=== PATIENT | male | born 1945 | race Caucasian/White ===

== ENCOUNTER 2024-01-29 10:11 | Outpatient (AMB) | payer OTHER, SELFPAY ==
[2024-01-29 09:57] VITALS: BP 153/70; PULSE 82; RESP 12; O2SAT 97; BMI 23.3
--- NOTE | 2024-01-29 09:57 | A.OFFPC_ITS ---
Vital Signs 01/29/24 09:57 Height 5 ft 9 in Weight 157 lb 9 oz BMI 23.3 BP 153/70 H Blood Pressure Location Rt brachial Position Sitting Respiration 12 Pulse 82 Pulse Source Pulse Oximeter Pulse Oximetry (%) 97 Oxygen Delivery Method Room Air Intake Visit Reasons: Follow up from different clinic Intake Note: Patient is here to establish care with [facility]. Patient would like refills on medications and a referral to to Dr. Gabriel, [facility]. 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 Operator Required: No Accompanied by: Spouse Allergies No Known Allergies Allergy (Verified 01/29/24 10:00) Medication List - Last Reconciled 01/29/24 by Delilah Keita MD aspirin (Adult Low Dose Aspirin) 81 mg PO DAILY atorvastatin 80 mg PO DAILY hydrocortisone 2.5% appl topical metoprolol succinate ER 12.5 mg PO DAILY multivitamin 1 tab PO DAILY Tobacco use date assessed: 01/29/24 Fall risk assessment: No Falls in past year Last assessed Fall Risk: 01/29/24 Dental Screening Dental Screen Date: 01/29/24 Did you have a dental visit in the last 12 months?: Yes Did you have a dental problem in the last 6 months where you did not have access to dental care?: No Was dental information given to patient?: Patient has dentist HPI HPI Comments History of Present Illness Details The patient is a 77-year-old male with a past medical history of CAD, NSTEMI, history of anemia presenting for follow-up CV: Follows with Mary. Had NSTEMI 2019 with SANA to proximal and distal RCA. On atorvastatin 80, aspirin 81, metoprolol 12.5 daily. No chest pain, shortness of breath, lower extremity edema Musculoskeletal: With having neck pain and a previous visit. Arthritis and muscle spasm seen on x-ray. It did dissipate. Has intermittent flares of sciatica/low back pain. Heme/Onc: Had significant anemia noted in 2020 and underwent upper endoscopy. Erosions were noted in the stomach however no active bleeding was seen. Colonoscopy (03/21/2021) did report 2 polyps that were later consistent with normal mucosa. Recommended 5 year follow-up given family history of colon cancer. ROS CONSTITUTIONAL: Denies weight loss, fever and chills. HEENT: Denies changes in vision and hearing. RESPIRATORY: Denies SOB and cough. CV: Denies palpitations and CP GI: Denies abdominal pain, nausea, vomiting and diarrhea. : Denies dysuria and urinary frequency. MSK: Denies new myalgia and joint pain. SKIN: Denies rash and pruritus. NEUROLOGICAL: Denies headache PSYCHIATRIC: Denies recent changes in mood. PHYSICAL EXAM: GENERAL: Alert and oriented x 3. NAD EYES: EOMI. Anicteric. HENT: Moist mucous membranes. No scleral icterus. No cervical lymphadenopathy. LUNGS: Clear to auscultation bilaterally. CARDIOVASCULAR: Regular rate and rhythm. No murmur. No JVD. ABDOMEN: Soft, non-tender +bs EXTREMITIES: No edema. Non-tender. SKIN: No rashes or lesions. Warm. NEUROLOGIC: No focal neurological deficits. CN II-XII grossly intact PSYCHIATRIC: Cooperative. Appropriate mood and affect PENDING SALE TO [facility] Medical History History of common carotid artery stent placement Neck pain CAD (coronary artery disease) History of ST elevation myocardial infarction (STEMI) Hypertension Hyperlipidemia Surgical History History of colonoscopy History of esophagogastroduodenoscopy (EGD) Family History Mother Heart disease Dementia Father Heart disease Hypertension Heart attack Social History Household Members: Spouse Housing: House Are you a primary gericare aide teacher to a significant other at home: No Do you presently have visiting nurse or other home services: No Alcohol intake: current Alcohol intake frequency: a few times a month Alcohol type: wine Patient Tobacco Use Status: Former Tobacco user Tobacco use type: Cigarette e-Cigarette/Vaping Use: Never Used Use of substances other than those prescribed or required for medical reasons: No Have you been hit, kicked, punched, or otherwise hurt by someone within the past year? If so, by whom?: No Do you feel safe in your current relationship?: Yes Is there a partner from a previous relationship who is making you feel unsafe now?: No Are you made to feel afraid or neglected: No service: Yes ([employer]) Current occupational status: retired Current occupational exposures/hazards: No Cognitive needs: No Hearing needs: No Vision needs: No Questionnaire PHQ-9 Over the last 2 weeks, how often have you been bothered by any of the following problems? 1. Little interest or pleasure in doing things: not at all 2. Feeling down, depressed, or hopeless: not at all 3. Trouble falling or staying asleep, or sleeping too much: not at all 4. Feeling tired or having little energy: not at all 5. Poor appetite or overeating: not at all 6. Feeling bad about yourself - or that you are a failure or have let yourself or your family down: not at all 7. Trouble concentrating on things, such as reading the newspaper or watching television: not at all 8. Moving or speaking so slowly that other people could have noticed. Or the opposite - being so fidgety or restless that you have been moving around a lot more than usual: not at all 9. Thoughts that you would be better off or of hurting yourself in some way: not at all Total score: 0 Depression Screening Interpretation: Negative (neg) Depression Screening Done: Yes 80435 - PHQ-9 Billing: Yes Source: Developed by Drs. Vinay Ferrer, Kiki Pascual, Justino Mena and colleagues, with an educational janet from [employer]. Thrive Questionnaire Date Thrive assessed: 01/29/24 I am a: Patient What is your living situation today?: I have a steady place to live Within the past 12 months, did the food you bought not last and you didn't have the money to get more?: Never true Within the past 12 months, did you worry whether your food would run out before you got money to buy more?: Never true Do you have trouble paying for medicines?: No Do you have trouble getting transportation to medical appointments?: No Do you have trouble paying your heating and electricity bill?: No Do you have trouble taking care of your child, family member or friend?: No Do you have trouble with day-to-day activities such as bathing, preparing meals, shopping, managing finances, etc.?: No Are you currently unemployed and looking for a job?: No Are you interested in more education?: No Please select the resources that you would like help with: None Currently or been in a relationship where the following occur: No concerns reported THRIVE Score: 0 AUDIT C Alcohol Use Questionnaire (AUDIT-C) 1. How often do you have a drink containing alcohol?: 2-3 times a week 2. How many drinks containing alcohol do you have on a typical day when you are drinking?: 1 or 2 3. How often do you have six or more drinks on one occasion?: Never Total Score: 3 KOTA-7 AMB Questionnaire KOTA-7 Date KOTA - 7 assessed: 01/29/24 Feeling nervous, anxious, or on edge: 0 = Not at all Not being able to stop or control worryin = Not at all Worrying too much about different things: 0 = Not at all Trouble relaxin = Not at all Being so restless that it is hard to sit still: 0 = Not at all Becoming easily annoyed or irritable: 0 = Not at all Feeling afraid as if something awful might happen: 0 = Not at all Total KOTA-7 score (0-4 normal; 5-9 mild; 10-14 moderate; 15-21 severe): 0 Source: Developed by Drs. Vinay Ferrer, Kiki Pascual, Justino Mena and colleagues, with an educational janet from [employer]. KOTA-7 Assessment Billing KOTA-7 Assessment Tool: KOTA-7 Assessment 98844 Physical exam (Primary Care) Vital Signs: Last Vital Signs Pulse 82 01/29/24 09:57 Resp 12 01/29/24 09:57 BP 153/70 H 01/29/24 09:57 Pulse Ox 97 01/29/24 09:57 Oxygen Delivery Method Room Air 01/29/24 09:57 BMI result Body Mass Index 23.3 Tobacco/Smoking Status: Tobacco use Status Tobacco use date assessed 01/29/24 01/29/24 10:09 Patient Tobacco Use Status Former Tobacco user 01/29/24 10:09 Tobacco use type Cigarette 01/29/24 10:09 e-Cigarette/Vaping Use Never Used 01/29/24 10:09 PHQ-9: PHQ-9 Score PHQ-9: Total score 0 02/03/24 11:33 Depression Screening Interpretation: Negative (neg) Thrive Assessment: Date of Thrive Assessment Date Thrive assessed 01/29/24 01/29/24 11:33 Currently or been in a relationship where the following occur: No concerns reported Assessment and Plan Assessment & Plan (1) CAD (coronary artery disease): Code(s): I25.10 - Atherosclerotic heart disease of [place] coronary artery without angina pectoris Qualifiers: Associated angina: without angina Coronary Disease-Associated Artery/Lesion type: [place] artery [place] vs. transplanted heart: [place] heart Qualified Code(s): I25.10 - Atherosclerotic heart disease of [place] coronary artery without angina pectoris Plan: Insurance referral for cardiology BP borderline. Reports controlled at home. Low salt diet. Normal BMI (2) Hypertension: Code(s): I10 - Essential (primary) hypertension Qualifiers: Hypertension type: primary hypertension Qualified Code(s): I10 - Essential (primary) hypertension Plan: see above. Labs ordered. continue current medications pending cardiology visit Orders: Orders Complete Blood Count Auto Diff 01/29/24 E78.5 - Hyperlipidemia, unspecified, I10 - Essential (primary) hypertension, I25.10 - Atherosclerotic heart disease of [place] coronary artery without angina pectoris, I25.2 - Old myocardial infarction Lipid Panel 01/29/24 E78.5 - Hyperlipidemia, unspecified, I10 - Essential (primary) hypertension, I25.10 - Atherosclerotic heart disease of [place] coronary artery without angina pectoris, I25.2 - Old myocardial infarction Comprehensive Met. Panel 01/29/24 E78.5 - Hyperlipidemia, unspecified, I10 - Essential (primary) hypertension, I25.10 - Atherosclerotic heart disease of [place] coronary artery without angina pectoris, I25.2 - Old myocardial infarction IRON PROFILE 01/29/24 E78.5 - Hyperlipidemia, unspecified, I10 - Essential (primary) hypertension, I25.10 - Atherosclerotic heart disease of [place] coronary artery without angina pectoris, I25.2 - Old myocardial infarction Referrals Cardiology Referral I25.10 - Atherosclerotic heart disease of [place] coronary artery without angina pectoris Medications: New sildenafil (Viagra) administer 30 minutes to 4 hours before activity 50 mg PO DAILY PRN 90 tabs 3RF sexual activity metoprolol succinate ER 12.5 mg (1/2 x 25 mg) PO DAILY 90 tabs 3RF atorvastatin 80 mg PO DAILY 90 tabs 3RF hydrocortisone 2.5% 1 appl topical DAILY 30 grams 3RF Coding Level of Care Code Est Pt Level 4 (74415) Complex EM visit Add On G2211 Diagnoses Coronary artery disease involving [place] coronary artery of [place] heart without angina pectoris I25.10 Associated angina: without angina Coronary Disease-Associated Artery/Lesion type: [place] artery [place] vs. transplanted heart: [place] heart Primary hypertension I10 Hypertension type: primary hypertension Additional Codes KOTA-7 Assessment Billing - KTOA-7 Assessment Tool: KOTA-7 Assessment 29548 ([id number])
== END 2024-01-29 10:46 | disposition home or self-care (01) ==
PROVIDERS: PCP Internal Medicine; Visit Provider Internal Medicine
DX: I25.10 Atherosclerotic heart disease of native coronary artery without angina pectoris (principal); I10 Essential (primary) hypertension
CPT/HCPCS: 99204; 99214

== ENCOUNTER 2024-01-29 10:57 | Outpatient (REF) | payer OTHER, SELFPAY ==
[2024-01-29 14:03] LABS: MANUAL DIFF FLAG NO
[2024-01-29 14:08] LABS: Basophils Absolute Auto 0.1 X10*3/uL (0.0-0.2); Basophils Percent Auto 0.9 % (0-2); Eosinophils Absolute Auto 0.3 X10*3/uL (0.0-0.4); Eosinophils Percent Auto 3.3 % (0-4); Hematocrit 46.4 % (42.0-52.0); Hemoglobin 15.4 g/dl (14.0-18.0); Imm Gran Abs Auto 0.04 X10*3/uL (0.00-0.03); Imm Gran Pct Auto 0.5 % (0.0-0.4); Lymphocytes Absolute Auto 1.7 X10*3/uL (1.2-4.9); Lymphocytes Percent Auto 22.9 % (20-40); Mean Corpuscular HGB Conc 33.2 g/dl (31.0-36.0); Mean Corpuscular Hemoglobin 29.6 pg (27.0-33.0); Mean Corpuscular Volume 89.2 fL (80.0-98.0); Mean Platelet Volume 11.4 fL (9.4-12.4); Monocytes Absolute Auto 0.7 X10*3/uL (0.1-1.2); Monocytes Percent Auto 8.7 % (2-11); Neutrophils Absolute Auto 4.8 x10*3/uL (2.0-8.3); Neutrophils Percent Auto 63.7 % (45-73); Platelet Count 219 X10*3/uL (160-400); Red Cell Distribution Width 13.3 % (11.0-16.0); White Blood Count 7.6 X10*3/uL (4.8-10.8)
[2024-01-29 14:31] LABS: Alanine Aminotransferase 23 U/L (0-40); Albumin Level 4.4 g/dL (3.5-5.0); Alkaline Phosphatase 64 U/L (39-117); Anion Gap 13 (12-20); Aspartate Amino Transferase 23 U/L (5-37); Bilirubin Total 0.9 mg/dL (0.0-1.0); Blood Urea Nitrogen 15 mg/dL (9-16); Calcium 9.9 mg/dL (8.4-10.2); Carbon Dioxide 26 mmol/L (22-29); Chloride 105 mmol/L (96-108); Cholesterol 142 mg/dL (<200); Estimated Glomerular Filt Rate > 60; Glucose Random 94 mg/dL (60-115); HDL Cholesterol 66 mg/dL (>40); Iron 172 mcg/dL (45-160); LDL Cholesterol Calculated 64 mg/dL (<100); Percent Iron Saturation 56 % (15-50); Potassium 4.4 mmol/L (3.3-5.1); Sodium 140 mmol/L (135-145); Total Iron Binding Capacity 307 mcg/dL (228-428); Total Protein 7.5 g/dL (6.5-8.0); Triglycerides 64 mg/dL (<150); Unsaturated Iron Binding 135 ug/dL
== END 2024-01-29 10:58 | disposition home or self-care (01) ==
LOC: HO.WFDLDS 10:57
PROVIDERS: Visit Provider Internal Medicine
DX: I25.10 Atherosclerotic heart disease of native coronary artery without angina pectoris (principal); I25.2 Old myocardial infarction; I10 Essential (primary) hypertension; E78.5 Hyperlipidemia, unspecified
CPT/HCPCS: 36415; 80053; 80061; 83540; 85025

== ENCOUNTER 2024-08-08 10:33 | Outpatient (AMB) | payer OTHER, SELFPAY ==
--- NOTE | 2024-08-08 10:40 | AM.OFFVISMDC ---
Intake Intake Visit Reasons: AWV Allergies No Known Allergies Allergy (Verified 01/29/24 10:00) HPI HPI Comments History of Present Illness Details The patient is a 77-year-old male with a past medical history of CAD, NSTEMI, history of anemia presenting for follow-up CV: Follows with [facility]. Had NSTEMI 2019 with SANA to proximal and distal RCA. On atorvastatin 80, aspirin 81, metoprolol 12.5 daily. No chest pain, shortness of breath, lower extremity edema Musculoskeletal: With having neck pain and a previous visit. Arthritis and muscle spasm seen on x-ray. It did dissipate. Has intermittent flares of sciatica/low back pain. Heme/Onc: Had significant anemia noted in 2020 and underwent upper endoscopy. Erosions were noted in the stomach however no active bleeding was seen. Colonoscopy (03/21/2021) did report 2 polyps that were later consistent with normal mucosa. Recommended 5 year follow-up given family history of colon cancer. ROS CONSTITUTIONAL: Denies weight loss, fever and chills. HEENT: Denies changes in vision and hearing. RESPIRATORY: Denies SOB and cough. CV: Denies palpitations and CP GI: Denies abdominal pain, nausea, vomiting and diarrhea. : Denies dysuria and urinary frequency. MSK: Denies new myalgia and joint pain. SKIN: Denies rash and pruritus. NEUROLOGICAL: Denies headache PSYCHIATRIC: Denies recent changes in mood. PHYSICAL EXAM: GENERAL: Alert and oriented x 3. NAD EYES: EOMI. Anicteric. HENT: Moist mucous membranes. No scleral icterus. No cervical lymphadenopathy. LUNGS: Clear to auscultation bilaterally. CARDIOVASCULAR: Regular rate and rhythm. No murmur. No JVD. ABDOMEN: Soft, non-tender +bs EXTREMITIES: No edema. Non-tender. SKIN: No rashes or lesions. Warm. NEUROLOGIC: No focal neurological deficits. CN II-XII grossly intact PSYCHIATRIC: Cooperative. Appropriate mood and affect [facility] Medical History History of common carotid artery stent placement Neck pain CAD (coronary artery disease) History of ST elevation myocardial infarction (STEMI) Hypertension Hyperlipidemia Surgical History History of colonoscopy History of esophagogastroduodenoscopy (EGD) Family History Mother Heart disease Dementia Father Heart disease Hypertension Heart attack Social History Household Members: Spouse Housing: House Are you a primary home care nurse to a significant other at home: No Do you presently have visiting nurse or other home services: No 75 years or older and lives alone: No Alcohol intake: current Alcohol intake frequency: a few times a month Alcohol type: wine Patient Tobacco Use Status: Former Tobacco user Tobacco use type: Cigarette e-Cigarette/Vaping Use: Never Used service: Yes ([employer]) Current occupational status: retired Current occupational exposures/hazards: No Cognitive needs: No Hearing needs: No Vision needs: No Coding
--- NOTE | 2024-08-08 10:54 | MHC.PC.OV ---
Vital Signs 08/08/24 10:57 08/08/24 11:00 Height 5 ft 9 in Weight 160 lb 2 oz BMI 23.6 BP 142/82 H 136/74 Blood Pressure Location Rt brachial Rt brachial Position Sitting Sitting Pulse 68 Pulse Source Pulse Oximeter Pulse Oximetry (%) 98 Oxygen Delivery Method Room Air Intake Visit Reasons: AWV Intake Note: Medical wellness visit Marriage Counselor Minister Required: No Allergies No Known Allergies Allergy (Verified 08/08/24 10:55) Tobacco use date assessed: 01/29/24 Dental Screening Dental Screen Date: 01/29/24 HPI HPI Comments History of Present Illness Details The patient is a 78-year-old male with a past medical history of CAD, NSTEMI, history of anemia presenting for physical exam CV: Follows with [facility]. Had NSTEMI 2019 with SANA to proximal and distal RCA. On atorvastatin 80, aspirin 81, metoprolol 12.5 daily. Episode of chest pain in fall-went to ED had f/up with cardiology. Normal stress testing. No recurrent chest pain, shortness of breath, lower extremity edema Musculoskeletal: With having neck pain and a previous visit. Arthritis and muscle spasm seen on x-ray. It did dissipate. Has intermittent flares of sciatica/low back pain. Heme/Onc: Had significant anemia noted in 2020 and underwent upper endoscopy. Erosions were noted in the stomach however no active bleeding was seen. Colonoscopy (03/21/2021) did report 2 polyps that were later consistent with normal mucosa. Recommended 5 year follow-up given family history of colon cancer. Off iron ROS CONSTITUTIONAL: Denies weight loss, fever and chills. HEENT: Denies changes in vision and hearing. RESPIRATORY: Denies SOB and cough. CV: Denies palpitations and CP GI: Denies abdominal pain, nausea, vomiting and diarrhea. : Denies dysuria and urinary frequency. MSK: Denies new myalgia and joint pain. SKIN: Denies rash and pruritus. NEUROLOGICAL: Denies headache PSYCHIATRIC: Denies recent changes in mood. PHYSICAL EXAM: GENERAL: Alert and oriented x 3. NAD EYES: EOMI. Anicteric. HENT: Moist mucous membranes. No scleral icterus. No cervical lymphadenopathy. LUNGS: Clear to auscultation bilaterally. CARDIOVASCULAR: Regular rate and rhythm. No murmur. No JVD. ABDOMEN: Soft, non-tender +bs EXTREMITIES: No edema. Non-tender. SKIN: No rashes or lesions. Warm. NEUROLOGIC: No focal neurological deficits. CN II-XII grossly intact PSYCHIATRIC: Cooperative. Appropriate mood and affect [facility] Medical History History of common carotid artery stent placement Neck pain CAD (coronary artery disease) History of ST elevation myocardial infarction (STEMI) Hypertension Hyperlipidemia Surgical History History of colonoscopy History of esophagogastroduodenoscopy (EGD) Family History Mother Heart disease Dementia Father Heart disease Hypertension Heart attack Social History Household Members: Spouse Housing: House Are you a primary daycare worker to a significant other at home: No Do you presently have visiting nurse or other home services: No Alcohol intake: current Alcohol intake frequency: a few times a month Alcohol type: wine Patient Tobacco Use Status: Former Tobacco user Tobacco use type: Cigarette e-Cigarette/Vaping Use: Never Used service: Yes ([employer]) Current occupational status: retired Current occupational exposures/hazards: No Cognitive needs: No Hearing needs: No Vision needs: No Questionnaire Thrive Questionnaire Date Thrive assessed: 01/29/24 KOTA-7 AMB Questionnaire KOTA-7 Date KOTA - 7 assessed: 01/29/24 Source: Developed by Drs. Vinay Ferrer, Kiki Pascual, Justino Mena and colleagues, with an educational janet from [employer]. Physical exam (Primary Care) Vital Signs: Last Vital Signs Pulse 68 08/08/24 10:57 BP 136/74 08/08/24 11:00 Pulse Ox 98 08/08/24 10:57 Oxygen Delivery Method Room Air 08/08/24 10:57 BMI result Body Mass Index 23.6 Tobacco/Smoking Status: Tobacco use Status Tobacco use date assessed 01/29/24 08/08/24 10:58 Patient Tobacco Use Status Former Tobacco user 08/08/24 11:04 Tobacco use type Cigarette 08/08/24 11:04 e-Cigarette/Vaping Use Never Used 08/08/24 11:04 Thrive Assessment: Date of Thrive Assessment Date Thrive assessed 01/29/24 08/08/24 10:58 Coding Level of Care Code Est Pt Prev Care >65y(05453) Diagnoses Physical exam Z00.00 Coronary artery disease involving [place] coronary artery of [place] heart without angina pectoris I25.10 Associated angina: without angina Coronary Disease-Associated Artery/Lesion type: [place] artery [place] vs. transplanted heart: [place] heart Assessment & Plan Assessment & Plan (1) Physical exam: Code(s): Z00.00 - Encounter for general adult medical examination without abnormal findings Category: Medical Plan: 78 year old for physical exam Preventive measures for age reviewed Chronic medical conditions, interval history and medications reconciled (2) CAD (coronary artery disease): Code(s): I25.10 - Atherosclerotic heart disease of [place] coronary artery without angina pectoris Category: Medical Qualifiers: Associated angina: without angina Coronary Disease-Associated Artery/Lesion type: [place] artery [place] vs. transplanted heart: [place] heart Qualified Code(s): I25.10 - Atherosclerotic heart disease of [place] coronary artery without angina pectoris Plan: No new issues. BP controlled. Lipids ordered. Continue cardiology follow up Orders: Orders Complete Blood Count Auto Diff Today E78.5 - Hyperlipidemia, unspecified, I10 - Essential (primary) hypertension, Z00.00 - Encounter for general adult medical examination without abnormal findings, Z12.5 - Encounter for screening for malignant neoplasm of prostate, Z13.0 - Encounter for screening for diseases of the blood and blood-forming organs and certain disorders involving the immune mechanism IRON PROFILE Today E78.5 - Hyperlipidemia, unspecified, I10 - Essential (primary) hypertension, Z00.00 - Encounter for general adult medical examination without abnormal findings, Z12.5 - Encounter for screening for malignant neoplasm of prostate, Z13.0 - Encounter for screening for diseases of the blood and blood-forming organs and certain disorders involving the immune mechanism Comprehensive Met. Panel Today E78.5 - Hyperlipidemia, unspecified, I10 - Essential (primary) hypertension, Z00.00 - Encounter for general adult medical examination without abnormal findings, Z12.5 - Encounter for screening for malignant neoplasm of prostate, Z13.0 - Encounter for screening for diseases of the blood and blood-forming organs and certain disorders involving the immune mechanism Prostate Specific Antigen Today E78.5 - Hyperlipidemia, unspecified, I10 - Essential (primary) hypertension, Z00.00 - Encounter for general adult medical examination without abnormal findings, Z12.5 - Encounter for screening for malignant neoplasm of prostate, Z13.0 - Encounter for screening for diseases of the blood and blood-forming organs and certain disorders involving the immune mechanism Lipid Panel Today E78.5 - Hyperlipidemia, unspecified, I10 - Essential (primary) hypertension, Z00.00 - Encounter for general adult medical examination without abnormal findings, Z12.5 - Encounter for screening for malignant neoplasm of prostate, Z13.0 - Encounter for screening for diseases of the blood and blood-forming organs and certain disorders involving the immune mechanism Referrals Cardiology Referral I25.10 - Atherosclerotic heart disease of [place] coronary artery without angina pectoris Medications: New ezetimibe 10 mg PO DAILY 90 tabs 3RF
[2024-08-08 10:57] VITALS: BP 142/82; PULSE 68; O2SAT 98; BMI 23.6
[2024-08-08 11:00] VITALS: BP 136/74
== END 2024-08-08 11:47 | disposition home or self-care (01) ==
PROVIDERS: PCP Internal Medicine; Visit Provider Internal Medicine
DX: Z00.00 Encounter for general adult medical examination without abnormal findings (principal); I25.10 Atherosclerotic heart disease of native coronary artery without angina pectoris

== ENCOUNTER 2024-08-08 11:55 | Outpatient (REF) | payer OTHER, SELFPAY ==
[2024-08-08 14:31] LABS: MANUAL DIFF FLAG NO
[2024-08-08 14:34] LABS: Basophils Absolute Auto 0.1 X10*3/uL (0.0-0.2); Basophils Percent Auto 0.9 % (0-2); Eosinophils Absolute Auto 0.3 X10*3/uL (0.0-0.4); Eosinophils Percent Auto 3.2 % (0-4); Hematocrit 47.9 % (42.0-52.0); Hemoglobin 15.9 g/dl (14.0-18.0); Imm Gran Abs Auto 0.04 X10*3/uL (0.00-0.03); Imm Gran Pct Auto 0.5 % (0.0-0.4); Lymphocytes Absolute Auto 1.7 X10*3/uL (1.2-4.9); Lymphocytes Percent Auto 21.6 % (20-40); Mean Corpuscular HGB Conc 33.2 g/dl (31.0-36.0); Mean Corpuscular Hemoglobin 29.1 pg (27.0-33.0); Mean Corpuscular Volume 87.6 fL (80.0-98.0); Mean Platelet Volume 11.4 fL (9.4-12.4); Monocytes Absolute Auto 0.7 X10*3/uL (0.1-1.2); Neutrophils Absolute Auto 5.1 x10*3/uL (2.0-8.3); Neutrophils Percent Auto 64.8 % (45-73); Platelet Count 252 X10*3/uL (160-400); Red Blood Count 5.47 X10*6/uL (4.60-5.80); Red Cell Distribution Width 13.1 % (11.0-16.0); White Blood Count 7.8 X10*3/uL (4.8-10.8)
[2024-08-08 14:50] LABS: Alanine Aminotransferase 39 U/L (0-40); Albumin Level 4.3 g/dL (3.5-5.0); Alkaline Phosphatase 74 U/L (39-117); Anion Gap 10 (12-20); Aspartate Amino Transferase 41 U/L (5-37); Bilirubin Total 0.8 mg/dL (0.0-1.0); Blood Urea Nitrogen 17 mg/dL (9-16); Calcium 9.8 mg/dL (8.4-10.2); Carbon Dioxide 27 mmol/L (22-29); Chloride 108 mmol/L (96-108); Cholesterol 125 mg/dL (<200); Estimated Glomerular Filt Rate > 60; Glucose Random 91 mg/dL (60-115); HDL Cholesterol 61 mg/dL (>40); Iron 139 mcg/dL (45-160); LDL Cholesterol Calculated 55 mg/dL (<100); Percent Iron Saturation 44 % (15-50); Potassium 4.3 mmol/L (3.3-5.1); Sodium 141 mmol/L (135-145); Total Iron Binding Capacity 315 mcg/dL (228-428); Total Protein 7.9 g/dL (6.5-8.0); Triglycerides 46 mg/dL (<150); Unsaturated Iron Binding 176 ug/dL
== END 2024-08-08 11:56 | disposition home or self-care (01) ==
LOC: HO.WFDLDS 11:55
PROVIDERS: Visit Provider Internal Medicine
DX: Z00.00 Encounter for general adult medical examination without abnormal findings (principal); Z13.0 Encounter for screening for diseases of the blood and blood-forming organs and certain disorders involving the immune mechanism; I10 Essential (primary) hypertension; E78.5 Hyperlipidemia, unspecified; Z12.5 Encounter for screening for malignant neoplasm of prostate
CPT/HCPCS: 36415; 80053; 80061; 83540; 84153; 85025